=== PATIENT | male | born 1955 | race Caucasian/White ===

== ENCOUNTER 2019-12-31 12:10 | Inpatient (IN) | payer MEDICAID ==
[~2019-12-31] VITALS: Ht 172.7 cm; Wt 98.9 kg
[~2019-12-31 12:10] MED LIST: ALBU6.7H11 INH; AZIT500T2 PO; FLUT1DIS3 ORI; Guaifenesin PO; METH4TAB3 PO; MONT10TA21 PO; OMEP20CA4 PO
[2019-12-31] MEDS ORDERED: IPRATROPIUM BROMIDE (0.02%) 0.5MG/2.5ML NEB HHN STA ×2 (13:09→16:23)
[2019-12-31] MEDS ORDERED: ALBUTEROL (0.083%) 2.5MG/3ML NEB HHN STA ×2 (13:09→16:23)
[2019-12-31 13:33] LABS: BG BASE EXCESS -2.5 mmol/L (-2.0-2.0); BG CARBOXYHEMOGLOBIN 0.8 % (0.5-1.5); BG DEOXYHEMOGLOBIN 5.6 % (0.0-5.0); BG FRACTION INSPIRED OXYGEN 21; BG HCO3 ACT 22.2 mmol/L (22.0-26.0); BG METHEMOGLOBIN 0.3 % (0.0-1.5); BG OXYGEN SATURATION 94.3 % (92.0-98.5); BG OXYHEMOGLOBIN 93.3 % (94.0-97.0); BG PCO2 38.4 mmHg (35.0-45.0); BG PO2 68.9 mmHg (75.0-100.0); BG SAMPLE SITE RIGHT RADIAL; BG TOTAL HEMOGLOBIN 16.1 g/dL (12.0-18.0); BG VENT MODE ROOM AIR
[2019-12-31 13:38] LABS: BASOPHILS % 0.4 % (0.0-2.0); EOSINOPHILS % 5.1 % (0.0-5.0); HEMATOCRIT. 48.4 % (42.0-52.0); HEMOGLOBIN. 16.3 g/dL (14.0-18.0); LYMPHOCYTES % 17.1 % (20.0-50.0); MEAN CORPUSCULAR HEMOGLOBIN 31.7 pg (28.0-32.0); MEAN PLATELET VOLUME 10.2 fl (7.4-10.4); MONOCYTES % 5.8 % (2.0-8.0); NEUTROPHILS % 71.6 % (40.0-76.0); PLATELET 272 x1000/uL (130-400); RED BLOOD CELL COUNT 5.15 mill/uL (4.7-6.1); RED CELL DISTRIBUTION WIDTH 13.3 % (11.6-14.6)
[2019-12-31 13:39] LABS: CHLORIDE 111 mEq/L (98-107)
[2019-12-31 13:43] LABS: ETHANOL BLOOD < 10 mg/dL
[2019-12-31 15:35] LABS: CLARITY URINE CLEAR (CLEAR); COLOR URINE YELLOW (YELLOW); KETONES URINE NEGATIVE (NEGATIVE); LEUKOCYTE ESTERASE URINE NEGATIVE (NEGATIVE); NITRITE URINE NEGATIVE (NEGATIVE); OCCULT BLOOD URINE NEGATIVE (NEGATIVE); PH URINE 5.5 (4.5-8.0); PROTEIN URINE NEGATIVE (NEGATIVE); SPECIFIC GRAVITY URINE 1.013 (1.005-1.030); UROBILINOGEN URINE 0.2 E.U./dL (0.2-1.0)
[2019-12-31 16:09] LABS: *AMPHETAMINES SCREEN URINE NEGATIVE (NEGATIVE); *BARBITURATES SCREEN URINE NEGATIVE (NEGATIVE); *BENZODIAZEPINES SCREEN URINE NEGATIVE (NEGATIVE); *COCAINE SCREEN URINE NEGATIVE (NEGATIVE); METHADONE URINE SCREEN NEGATIVE (NEGATIVE); OPIATES URINE SCREEN NEGATIVE (NEGATIVE)
[2019-12-31 16:10] LABS: CANNABINOID URINE SCREEN PRESUMTIVE POSITIVE (NEGATIVE); PHENCYCLIDINE URINE SCREEN NEGATIVE (NEGATIVE)
[2019-12-31] MEDS ORDERED: METHYLPREDNISOLONE SOD SUCC 125 MG/2 ML VIAL IV STA (16:23)
[2019-12-31] MEDS ORDERED: ASPIRIN 81MG TABLET PO ONE (16:30)
[2019-12-31] MEDS ORDERED: NITROGLYCERIN OINT 1GM/INCH UDPKT TD ONE (16:30)
[2019-12-31] MEDS ORDERED: CLONIDINE 0.1MG TABLET PO PRN (18:30)
[2019-12-31] MEDS ORDERED: DIPHENHYDRAMINE 50MG/ML VIAL IV PRN (18:30)
[2019-12-31] MEDS ORDERED: ACETAMINOPHEN 325MG TABLET PO PRN (18:30)
[2019-12-31] MEDS ORDERED: ONDANSETRON HCL 4MG/2ML INJ IV PRN (18:30)
[2019-12-31 19:37] LABS: PHOSPHORUS 2.2 mg/dL (2.5-4.9)
[2019-12-31] MEDS ORDERED: ENOXAPARIN 30MG/0.3ML SYR SUBCUT SCH (20:00)
[2019-12-31] MEDS: IPRATROPIUM/ALBUTEROL 0.5-3(2.5)MG/3ML NEB HHN PRN (20:16)
[2019-12-31 21:25] VITALS: BP 117/80
[2019-12-31] MEDS ORDERED: DEXTROSE 50% WATER 50ML SYRINGE IV PRN (22:30)
[2019-12-31] MEDS: METHYLPREDNISOLONE SOD SUCC 125 MG/2 ML VIAL IV SCH (22:38)
[2019-12-31] MEDS: INSULIN LISPRO 100 UNITS/ML SUBCUT SCH (22:38)
[2020-01-01] VITALS: BP 126/81
[2020-01-01] MEDS ORDERED: SITA100T11 PO (01:03)
[2020-01-01] MEDS ORDERED: METF-816 PO (01:03)
[2020-01-01] MEDS ORDERED: ATOR40TA70 PO (01:03)
[2020-01-01] MEDS ORDERED: GLIP5TAB12 PO (01:03)
[2020-01-01] MEDS ORDERED: LISI10TA5 PO (01:03)
[2020-01-01] MEDS ORDERED: AMLO10TA80 PO (01:03)
[2020-01-01] MEDS ORDERED: TAMS-11 PO (01:03)
[2020-01-01 04:00] VITALS: BP 107/71
[2020-01-01] MEDS: METHYLPREDNISOLONE SOD SUCC 125 MG/2 ML VIAL IV SCH ×3 (04:35→16:12)
[2020-01-01 05:56] LABS: CHLORIDE 107 mEq/L (98-107)
[2020-01-01 06:07] LABS: LDL CHOLESTEROL 95 mg/dL (5-100)
[2020-01-01 06:08] LABS: HDL CHOLESTEROL 47 mg/dL (40-59)
[2020-01-01 06:16] LABS: HEMOGLOBIN. 14.3 g/dL (14.0-18.0); MEAN CORPUSCULAR VOLUME 93.7 fL (80.0-94.0); MEAN PLATELET VOLUME 10.3 fl (7.4-10.4); PLATELET 251 x1000/uL (130-400); RED BLOOD CELL COUNT 4.48 mill/uL (4.7-6.1)
[2020-01-01 08:00] VITALS: BP 117/75
[2020-01-01] MEDS: BLOOD SUGAR DIAGNOSTIC STRIP TEST SCH ×4 (08:31→21:00)
[2020-01-01] MEDS: ENOXAPARIN 30MG/0.3ML SYR SUBCUT SCH ×2 (08:31→22:48)
[2020-01-01] MEDS: INSULIN LISPRO 100 UNITS/ML SUBCUT SCH ×4 (08:38→23:02)
[2020-01-01 10:19] LABS: PLATELET ESTIMATE NORMAL
[2020-01-01 12:00] VITALS: BP 115/69
[2020-01-01] MEDS ORDERED: NON FORMULARY PATIENT HOME MED XX SCH (15:15)
[2020-01-01 16:00] VITALS: BP 128/66
[2020-01-01] MEDS: TAMSULOSIN HCL 0.4MG SR CAPSULE PO SCH (16:12)
[2020-01-01] MEDS ORDERED: AZITHROMYCIN 500 MG in DEXT 5% WATER 250 ML IV SCH (17:00)
[2020-01-01 20:00] VITALS: BP 146/85
[2020-01-01] MEDS ORDERED: ATORVASTATIN CALCIUM 40MG TABLET PO SCH (21:00)
[2020-01-01] MEDS: IPRATROPIUM/ALBUTEROL 0.5-3(2.5)MG/3ML NEB HHN PRN (21:55)
[2020-01-02] VITALS: BP 122/65
[2020-01-02 04:00] VITALS: BP 107/63
[2020-01-02] MEDS ORDERED: METHYLPREDNISOLONE SOD SUCC 40 MG/ML VIAL IV SCH (06:00)
[2020-01-02] MEDS: BLOOD SUGAR DIAGNOSTIC STRIP TEST SCH (06:08)
[2020-01-02] MEDS: INSULIN LISPRO 100 UNITS/ML SUBCUT SCH (06:36)
[2020-01-02] MEDS ORDERED: OMEPRAZOLE 20MG CAPSULE EXTENDED RELEASE PO SCH (06:45)
[2020-01-02 07:00] LABS: CHLORIDE 106 mEq/L (98-107)
[2020-01-02 07:09] LABS: HEMATOCRIT. 42.7 % (42.0-52.0); HEMOGLOBIN. 14.2 g/dL (14.0-18.0); MEAN CORPUSCULAR HEMOGLOBIN 31.4 pg (28.0-32.0); MEAN CORPUSCULAR VOLUME 94.4 fL (80.0-94.0); MEAN PLATELET VOLUME 10.3 fl (7.4-10.4); PLATELET 256 x1000/uL (130-400); RED BLOOD CELL COUNT 4.52 mill/uL (4.7-6.1); RED CELL DISTRIBUTION WIDTH 13.2 % (11.6-14.6)
[2020-01-02 08:00] VITALS: BP 137/90
[2020-01-02] MEDS: TAMSULOSIN HCL 0.4MG SR CAPSULE PO SCH (08:34)
[2020-01-02] MEDS: ENOXAPARIN 30MG/0.3ML SYR SUBCUT SCH (08:34)
[2020-01-02] MEDS: IPRATROPIUM/ALBUTEROL 0.5-3(2.5)MG/3ML NEB HHN PRN (10:00)
[2020-01-02] MEDS ORDERED: MED4 MT (10:25)
[2020-01-02 10:51] VITALS: BP 137/90
[2020-01-02] MEDS ORDERED: GUAI-735 MT (11:10)
[2020-01-02] MEDS ORDERED: P20 MT (11:10)
[2020-01-02] MEDS ORDERED: GUAI-740 MT (11:11)
[2020-01-02 11:32] LABS: PLATELET ESTIMATE NORMAL
== END 2020-01-02 11:25 | disposition home or self-care (01) | DRG 720 ==
LOC: ER 12:10 → 7WST 17:22 → EDBEDREQ 17:25 → ENRESERV 20:35 → 5WST 01-01 20:30
PROVIDERS: ADMIT Internal Medicine; ATTEND Internal Medicine
DX: A41.9 Sepsis, unspecified organism (principal); J96.01 Acute respiratory failure with hypoxia; J44.1 Chronic obstructive pulmonary disease with (acute) exacerbation; J45.901 Unspecified asthma with (acute) exacerbation; E11.65 Type 2 diabetes mellitus with hyperglycemia; D72.810 Lymphocytopenia; F12.90 Cannabis use, unspecified, uncomplicated; I10 Essential (primary) hypertension; E66.9 Obesity, unspecified; D72.829 Elevated white blood cell count, unspecified; Z20.828 Contact with and (suspected) exposure to other viral communicable diseases; J20.9 Acute bronchitis, unspecified; J44.0 Chronic obstructive pulmonary disease with (acute) lower respiratory infection; I25.10 Atherosclerotic heart disease of native coronary artery without angina pectoris; I25.2 Old myocardial infarction; Z87.891 Personal history of nicotine dependence; Z79.84 Long term (current) use of oral hypoglycemic drugs; Z79.899 Other long term (current) drug therapy; Z86.74 Personal history of sudden cardiac arrest; Z68.33 Body mass index [BMI] 33.0-33.9, adult; Z71.89 Other specified counseling
CPT/HCPCS: 36415; 36600; 71045; 80048; 80053; 80061; 80305; 80320; 81003; 82375; 82805; 82962; 83036; 83735; 83880; 84100; 84443; 84484; 85025; 87635; 87804; 93005; 93970; 94640; 96374; 99291; J0456; J1650; J1815; J2920; J2930; J7060; G0480

== ENCOUNTER 2020-10-12 08:41 | Emergency (ER) | payer MEDICAID, OTHER ==
[~2020-10-12] VITALS: Ht 172.7 cm; Wt 100.0 kg
[~2020-10-12 08:41] MED LIST changes: +AMLO10TA80 PO; +ATOR40TA70 PO; -AZIT500T2 PO; +GLIP5TAB12 PO; +GUAI-740 MT; +LISI10TA26 PO; +METF-874 PO; -METH4TAB3 PO; +P20 MT; +SITA100T11 PO; +TAMS-11 PO
[2020-10-12] MEDS ORDERED: IPRATROPIUM BROMIDE (0.02%) 0.5MG/2.5ML NEB HHN STA (09:17)
[2020-10-12] MEDS ORDERED: ALBUTEROL (0.083%) 2.5MG/3ML NEB HHN STA ×2 (09:17→12:13)
[2020-10-12] MEDS ORDERED: MAGNESIUM 2 G PREMIX 50 ML IV STA (09:17)
[2020-10-12] MEDS ORDERED: METHYLPREDNISOLONE SOD SUCC 125 MG/2 ML VIAL IV STA (09:17)
[2020-10-12 10:32] LABS: BASOPHILS % 0.6 % (0.0-2.0); EOSINOPHILS % 7.8 % (0.0-5.0); HEMOGLOBIN. 17.4 g/dL (14.0-18.0); LYMPHOCYTES % 18.8 % (20.0-50.0); MEAN CORPUSCULAR HEMOGLOBIN 32.5 pg (28.0-32.0); MEAN PLATELET VOLUME 10.2 fl (7.4-10.4); MONOCYTES % 6.9 % (2.0-8.0); NEUTROPHILS % 65.9 % (40.0-76.0); PLATELET 249 x1000/uL (130-400); RED BLOOD CELL COUNT 5.37 mill/uL (4.7-6.1); RED CELL DISTRIBUTION WIDTH 12.7 % (11.6-14.6)
[2020-10-12 10:39] LABS: CHLORIDE 105 mEq/L (98-107)
[2020-10-12] MEDS ORDERED: P50 PO (12:15)
[2020-10-12] MEDS ORDERED: ALBU6.7H9 INH (12:15)
[2020-10-12 14:15] VITALS: BP 132/78
== END 2020-10-12 14:18 | disposition home or self-care (01) ==
LOC: ER 08:41
DX: J44.1 Chronic obstructive pulmonary disease with (acute) exacerbation (principal); E11.65 Type 2 diabetes mellitus with hyperglycemia; I10 Essential (primary) hypertension; I25.10 Atherosclerotic heart disease of native coronary artery without angina pectoris; I25.2 Old myocardial infarction; Z79.51 Long term (current) use of inhaled steroids; Z79.84 Long term (current) use of oral hypoglycemic drugs; Z79.899 Other long term (current) drug therapy
CPT/HCPCS: 36415; 71045; 80053; 83880; 84484; 85025; 93005; 94644; 96365; 96366; 96375; 99285; J2930; J3475; Z7610

== ENCOUNTER 2021-03-01 08:48 | Emergency (ER) | payer OTHER ==
[~2021-03-01] VITALS: Ht 172.7 cm; Wt 104.0 kg
[~2021-03-01 08:48] MED LIST changes: -ALBU6.7H11 INH; +ALBU6.7H15 INH; +ALBU6.7H9 INH; +P50 PO
[2021-03-01] MEDS ORDERED: METHYLPREDNISOLONE SOD SUCC 125 MG/2 ML VIAL IV STA (10:32)
[2021-03-01] MEDS ORDERED: IPRATROPIUM BROMIDE (0.02%) 0.5MG/2.5ML NEB HHN STA (10:32)
[2021-03-01] MEDS ORDERED: MAGNESIUM 2 G PREMIX 50 ML IV ONE (10:45)
[2021-03-01 11:00] LABS: BASOPHILS % 0.6 % (0.0-2.0); HEMATOCRIT. 55.2 % (42.0-52.0); HEMOGLOBIN. 18.8 g/dL (14.0-18.0); LYMPHOCYTES % 16.1 % (20.0-50.0); MEAN CORPUSCULAR HEMOGLOBIN 32.4 pg (28.0-32.0); MEAN CORPUSCULAR VOLUME 95.1 fL (80.0-94.0); MEAN PLATELET VOLUME 10.1 fl (7.4-10.4); MONOCYTES % 9.3 % (2.0-8.0); PLATELET 263 x1000/uL (130-400); RED CELL DISTRIBUTION WIDTH 12.9 % (11.6-14.6)
[2021-03-01 11:15] LABS: CHLORIDE 101 mEq/L (98-107)
[2021-03-01] MEDS: ALBUTEROL (0.083%) 2.5MG/3ML NEB HHN SCH ×2 (11:17→11:18)
[2021-03-01] MEDS ORDERED: SODIUM CHLORIDE 0.9% 1,000 ML IV ONE (11:45)
[2021-03-01] MEDS ORDERED: INSULIN REGULAR (HUMULIN R) 300UNITS/3ML VIAL SUBCUT ONE (12:00)
[2021-03-01] MEDS ORDERED: ASPIRIN 325MG EC TABLET PO ONE (13:00)
[2021-03-01] MEDS ORDERED: ALBUTEROL (0.083%) 2.5MG/3ML NEB HHN STA (13:46)
[2021-03-01] MEDS ORDERED: INSULIN LISPRO 100 UNITS/ML SUBCUT NR (21:15)
[2021-03-01 23:00] VITALS: BP 125/91
== END 2021-03-01 23:36 | disposition left against medical advice (07) ==
LOC: ER 08:48 → EDBEDREQ 15:36 → EDBEDREQTM 15:36 → ENRESERV 17:45 → CANRESERV 17:45 → ER 23:36 → CANBEDREQ 03-02 09:24
DX: J44.1 Chronic obstructive pulmonary disease with (acute) exacerbation (principal); E11.65 Type 2 diabetes mellitus with hyperglycemia; E86.0 Dehydration; R00.0 Tachycardia, unspecified; I10 Essential (primary) hypertension; I25.10 Atherosclerotic heart disease of native coronary artery without angina pectoris; I25.2 Old myocardial infarction; Z79.4 Long term (current) use of insulin; Z79.899 Other long term (current) drug therapy
CPT/HCPCS: 36415; 71045; 80053; 82962; 83880; 84484; 85025; 93005; 94640; 96365; 96366; 96372; 96375; 99291; J1815; J2930; J3475; Z7610

== ENCOUNTER 2021-08-28 09:16 | Emergency (ER) | payer OTHER ==
[~2021-08-28] VITALS: Ht 172.7 cm; Wt 97.0 kg
[2021-08-28] MEDS ORDERED: METHYLPREDNISOLONE SOD SUCC 125 MG/2 ML VIAL IV STA (11:21)
[2021-08-28] MEDS ORDERED: IPRATROPIUM BROMIDE (0.02%) 0.5MG/2.5ML NEB HHN STA (11:21)
[2021-08-28] MEDS ORDERED: ALBUTEROL (0.083%) 2.5MG/3ML NEB HHN STA (11:21)
[2021-08-28] MEDS ORDERED: MAGNESIUM 2 G PREMIX 50 ML IV ONE (11:30)
[2021-08-28] MEDS ORDERED: AZITHROMYCIN 500MG/250ML 250 ML IV ONE (11:30)
[2021-08-28] MEDS ORDERED: CEFTRIAXONE 1 G PREMIX 50 ML IV ONE (11:30)
[2021-08-28] MEDS ORDERED: ASPIRIN 81MG TABLET PO ONE (11:30)
[2021-08-28 11:35] LABS: BASOPHILS % 0.4 % (0.0-2.0); CHLORIDE 107 mEq/L (98-107); EOSINOPHILS % 6.5 % (0.0-5.0); HEMATOCRIT. 49.2 % (42.0-52.0); HEMOGLOBIN. 16.8 g/dL (14.0-18.0); LYMPHOCYTES % 18.6 % (20.0-50.0); MEAN CORPUSCULAR HEMOGLOBIN 32.3 pg (28.0-32.0); MEAN CORPUSCULAR VOLUME 94.5 fL (80.0-94.0); MEAN PLATELET VOLUME 10.3 fl (7.4-10.4); MONOCYTES % 8.2 % (2.0-8.0); NEUTROPHILS % 66.3 % (40.0-76.0); PLATELET 278 x1000/uL (130-400); RED CELL DISTRIBUTION WIDTH 13.1 % (11.6-14.6)
[2021-08-28] MEDS ORDERED: SODIUM CHLORIDE 0.9% 1,000 ML IV ONE (14:15)
[2021-08-28 15:06] VITALS: BP 120/88
== END 2021-08-28 15:08 | disposition left against medical advice (07) ==
LOC: ER 09:16 → CANBEDREQ 20:18
DX: J44.1 Chronic obstructive pulmonary disease with (acute) exacerbation (principal); I25.10 Atherosclerotic heart disease of native coronary artery without angina pectoris; I10 Essential (primary) hypertension; E11.9 Type 2 diabetes mellitus without complications; I25.2 Old myocardial infarction
CPT/HCPCS: 36415; 71045; 80053; 83690; 83880; 84484; 85025; 93005; 94640; 96365; 96366; 96368; 96375; 99285; J0456; J0696; J2930; J3475; J7030; Z7610

== ENCOUNTER 2022-08-25 08:20 | Emergency (ER) | payer OTHER ==
[~2022-08-25] VITALS: Ht 172.7 cm; Wt 91.0 kg
[~2022-08-25 08:20] MED LIST changes: +ALBU6.7H3 INH; -ALBU6.7H9 INH; +MONT-46 PO; -MONT10TA21 PO
[2022-08-25] MEDS ORDERED: AMOX-494 MT (09:24)
[2022-08-25] MEDS ORDERED: IBUP-2029 MT (09:24)
[2022-08-25] MEDS ORDERED: IBUPROFEN 600MG TABLET PO ONE (09:30)
[2022-08-25 09:33] LABS: BASOPHILS % 0.1 % (0.0-2.0); EOSINOPHILS % 0.4 % (0.0-5.0); HEMATOCRIT. 55.3 % (42.0-52.0); HEMOGLOBIN. 18.8 g/dL (14.0-18.0); LYMPHOCYTES % 18.6 % (20.0-50.0); MEAN CORPUSCULAR HEMOGLOBIN 32.2 pg (28.0-32.0); MEAN CORPUSCULAR VOLUME 94.7 fL (80.0-94.0); MEAN PLATELET VOLUME 9.3 fl (7.4-10.4); MONOCYTES % 7.3 % (2.0-8.0); NEUTROPHILS % 73.6 % (40.0-76.0); PLATELET 258 x1000/uL (130-400); RED BLOOD CELL COUNT 5.85 mill/uL (4.7-6.1); RED CELL DISTRIBUTION WIDTH 13.4 % (11.6-14.6)
[2022-08-25 09:36] VITALS: BP 117/85
[2022-08-25 09:39] LABS: CHLORIDE 101 mEq/L (98-107)
== END 2022-08-25 09:39 | disposition home or self-care (01) ==
LOC: ER 08:20
DX: S03.2XXA Dislocation of tooth, initial encounter (principal); Z79.899 Other long term (current) drug therapy; X58.XXXA Exposure to other specified factors, initial encounter; Y93.89 Activity, other specified; Y92.89 Other specified places as the place of occurrence of the external cause; Y99.8 Other external cause status
CPT/HCPCS: 36415; 80053; 82962; 85025; 99283

== ENCOUNTER 2023-05-09 09:36 | Emergency (ER) | payer SELFPAY ==
[~2023-05-09] VITALS: Ht 175.3 cm; Wt 85.0 kg
[~2023-05-09 09:36] MED LIST changes: +AMOX-494 MT; -GLIP5TAB12 PO; +GLIP5TAB22 PO; +IBUP-2029 MT
[2023-05-09 09:37] VITALS: O2SAT 99
[2023-05-09] MEDS ORDERED: SODIUM CHLORIDE 0.9% 1,000 ML IV ONE ×2 (10:00→10:30)
[2023-05-09 10:24] LABS: HEMATOCRIT. 51.4 % (42.0-52.0); HEMOGLOBIN. 17.4 g/dL (14.0-18.0); MEAN CORPUSCULAR HEMOGLOBIN 32.2 pg (28.0-32.0); MEAN CORPUSCULAR HGB CONC 33.9 g/dL (31.0-37.0); MEAN CORPUSCULAR VOLUME 95.1 fL (80.0-94.0); MEAN PLATELET VOLUME 10.6 fl (7.4-10.4); PLATELET 225 x1000/uL (130-400); RED CELL DISTRIBUTION WIDTH 12.6 % (11.6-14.6); WHITE BLOOD COUNT 13.5 x1000/uL (4.5-11.0)
[2023-05-09 10:25] LABS: DIFFERENTIAL COMMENT 1
[2023-05-09 10:50] LABS: CLARITY URINE CLEAR (CLEAR); COLOR URINE DARK YELLOW (YELLOW); GLUCOSE URINE 3+ (NEGATIVE); KETONES URINE 3+ (NEGATIVE); LEUKOCYTE ESTERASE URINE NEGATIVE (NEGATIVE); NITRITE URINE NEGATIVE (NEGATIVE); OCCULT BLOOD URINE 1+ (NEGATIVE); PROTEIN URINE 3+ (NEGATIVE); SPECIFIC GRAVITY URINE 1.042 (1.005-1.030)
[2023-05-09 11:12] LABS: ALANINE AMINOTRANSFERASE 22 IU/L (10-49); ALBUMIN 3.9 g/dL (3.2-4.8); ASPARTATE AMINOTRANSFERASE 23 IU/L (<34); BILIRUBIN TOTAL 0.7 mg/dL (0.1-1.0); CALCIUM 10.1 mg/dL (8.7-10.4); CARBON DIOXIDE 19 mEq/L (21-32); CHLORIDE 95 mEq/L (98-107); CREATININE 0.9 mg/dL (0.6-1.3); GLUCOSE 330 mg/dL (70-105); POTASSIUM 3.2 mEq/L (3.5-5.1); PROTEIN TOTAL 7.5 g/dL (6.0-8.3); SODIUM 128 mEq/L (136-145); TROPONIN I HIGH SENSITIVITY 20 ng/L (3.0-53); UREA NITROGEN BLOOD 27 mg/dL (9-23)
[2023-05-09 11:24] LABS: ETHANOL BLOOD < 10 mg/dL (<10)
[2023-05-09 11:39] LABS: MUCUS URINE TRACE /lpf (NONE/TRACE); SQUAMOUS EPITHELIAL CELL URINE NONE SEEN /lpf (RARE/1+)
[2023-05-09 11:40] LABS: BACTERIA URINE TRACE; WBC URINE 0-2 /hpf (0-2)
[2023-05-09 11:41] LABS: RBC URINE NONE SEEN /hpf (0-2)
[2023-05-09] MEDS ORDERED: LACTATED RINGERS 1,000 ML IV SCH (12:00)
[2023-05-09] MEDS ORDERED: DEXTROSE 50% WATER 50ML SYRINGE IV PRN (12:30)
[2023-05-09] MEDS ORDERED: POTASSIUM CHLORIDE 20MEQ TABLET SR PO ONE (12:30)
[2023-05-09] MEDS ORDERED: BLOOD SUGAR DIAGNOSTIC STRIP TEST SCH (13:00)
[2023-05-09] MEDS ORDERED: INSULIN LISPRO 100 UNITS/ML SUBCUT SCH (13:20)
[2023-05-09 13:33] LABS: PLATELET ESTIMATE NORMAL
[2023-05-09] MEDS ORDERED: ONDA4TAB11 PO (13:46)
[2023-05-09 14:26] VITALS: BP 137/88; PULSE 97; RESP 18; TEMP 98.4
[2023-05-10] MEDS ORDERED: LACTATED RINGERS 1,000 ML IV SCH (12:00)
== END 2023-05-09 15:11 | disposition home or self-care (01) ==
LOC: ER 09:51
DX: A08.4 Viral intestinal infection, unspecified (principal); E86.0 Dehydration; J45.909 Unspecified asthma, uncomplicated; E11.9 Type 2 diabetes mellitus without complications; I10 Essential (primary) hypertension; I25.2 Old myocardial infarction; I11.0 Hypertensive heart disease with heart failure; Z20.822 Contact with and (suspected) exposure to COVID-19
CPT/HCPCS: 80053; 81003; 82010; 80320; 82962; 83605; 83690; 85025; 85610; 87420; 87040; 84484; 87804 ×2; 36415; 84145; 71045; 93005; 96360; 96361; 96372; 99285; 87426; J1815; J7030; C9803; 83880; G0480